=== PATIENT | female | born 1995 | race Caucasian/White ===

== ENCOUNTER 2018-01-09 01:30 | Inpatient (IN) | payer OTHER ==
[~2018-01-09] VITALS: Ht 157.5 cm; Wt 66.0 kg
[2018-01-09 02:12] LABS: MICROSCOPIC INDICATED
[2018-01-09] MEDS ORDERED: BETAMETHASONE 6 MG/ML, 5ML IM SCH ×2 (02:30→03:00)
[2018-01-09] MEDS ORDERED: BETAMETHASONE 6 MG/ML, 5ML IM ONE (02:32)
[2018-01-09] MEDS: LACTATED RINGERS 1,000 ML IV SCH ×3 (02:40→19:00)
[2018-01-09 02:48] LABS: BASOPHILS # (AUTO) 0.04 x10^3/uL (0-0.1); BASOPHILS % (AUTO) 0 % (0-1); EOSINOPHILS # (AUTO) 0.22 x10^3/uL (0-0.4); EOSINOPHILS % (AUTO) 1 % (1-7); LYMPHOCYTES # (AUTO) 3.28 x10^3/uL (1-3.4); LYMPHOCYTES % (AUTO) 19 % (22-44); MD NO; MEAN CORPUSCULAR HEMOGLOBIN 26.7 pg (27.0-34.8); MEAN CORPUSCULAR HGB CONC 33.6 g/dL (32.4-35.8); MEAN CORPUSCULAR VOLUME 79.4 fL (80-100); MEAN PLATELET VOLUME 9.2 fL (7.4-10.4); MONOCYTES # (AUTO) 1.28 x10^3/uL (0.2-0.8); MONOCYTES % (AUTO) 8 % (2-9); NEUTROPHILS # (AUTO) 12.25 x10^3/uL (1.8-6.8); NEUTROPHILS % (AUTO) 72 % (42-75); PLATELET COUNT 275 x10^3/uL (130-400); RED BLOOD COUNT 4.09 x10^6/uL (3.82-5.3); RED CELL DISTRIBUTION WIDTH 14.1 % (9.6-15.2)
[2018-01-09] MEDS ORDERED: D5%-LACTATED RINGERS 1,000 ML IV SCH (03:41)
[2018-01-09] MEDS ORDERED: LACTATED RINGERS 1,000 ML IV SCH (03:41)
[2018-01-09] MEDS ORDERED: OXYTOCIN 30U/ 0.9% NaCL 500ML 500 ML IV ONE (03:41)
[2018-01-09] MEDS ORDERED: FENTANYL PF 100 MCG/2ML ONE ×2 (03:45→04:45)
[2018-01-09] MEDS ORDERED: NEWBORN KIT ONE (03:45)
[2018-01-09] MEDS ORDERED: LIDOCAINE/PF 1%, 30ML ONE (03:45)
[2018-01-09] MEDS ORDERED: OXYTOCIN 30U/ 0.9% NaCL 500ML 500 ML ONE (03:45)
[2018-01-09] MEDS: FENTANYL PF 100 MCG/2ML IVPush PRN ×2 (03:52→04:47)
[2018-01-09] MEDS ORDERED: CALCIUM CARBONATE 500 MG TAB.CHEW PO PRN (04:00)
[2018-01-09] MEDS ORDERED: FENTANYL PF 100 MCG/2ML IV PRN (04:00)
[2018-01-09] MEDS ORDERED: ONDANSETRON 2MG/ML, 2ML IVPush PRN (04:00)
[2018-01-09] MEDS ORDERED: TERBUTALINE 1 MG/ML, 1ML IVPush PRN (04:00)
[2018-01-09] MEDS ORDERED: PENICILLIN GK 5,000,000 UNITS in SODIUM CHLORIDE 0.9% 100 ML IVPB ONE (04:00)
[2018-01-09] MEDS: OXYTOCIN 30U/ 0.9% NaCL 500ML 500 ML IV SCH ×2 (06:13→16:13)
[2018-01-09] MEDS ORDERED: OXYcodone/APAP 5/325MG TABLET PO PRN (06:30)
[2018-01-09] MEDS ORDERED: METHYLERGONOVINE 0.2 MG/ML IM PRN ×2 (06:30→08:30)
[2018-01-09] MEDS ORDERED: ACETAMINOPHEN 325 MG TABLET PO PRN (06:30)
[2018-01-09] MEDS ORDERED: RHOGAM FROM BLOOD BANK 1 NOTE EA IM/IV ONE (06:30)
[2018-01-09] MEDS ORDERED: CARBOPROST TROMETHAMINE 250 MCG/ML, 1ML IM PRN (06:30)
[2018-01-09] MEDS ORDERED: DIPH,PERTUSS(ACELL),TET VAC/PF NC IM-VACC PRN (06:30)
[2018-01-09] MEDS ORDERED: MEASLES,MUMPS&RUBELLA VACC/PF 0.5 ML SQ PRN (06:30)
[2018-01-09] MEDS ORDERED: MISOPROSTOL 200 MCG TABLET PR PRN (06:30)
[2018-01-09] MEDS ORDERED: IBUPROFEN 600 MG TABLET ONE (06:34)
[2018-01-09] MEDS: IBUPROFEN 600 MG TABLET PO PRN ×2 (06:37→22:18)
[2018-01-09 07:55] VITALS: BP 127/75
[2018-01-09] MEDS ORDERED: PENICILLIN GK 2,500,000 UNITS in DEXTROSE 5% 100 ML IVPB SCH (08:00)
[2018-01-09] MEDS: PRENATAL VIT/IRON/FA 1 EACH TABLET PO SCH (09:00)
[2018-01-09 11:45] VITALS: BP 136/83
[2018-01-09 13:43] LABS: MEAN CORPUSCULAR HEMOGLOBIN 26.7 pg (27.0-34.8); MEAN CORPUSCULAR HGB CONC 33.5 g/dL (32.4-35.8); MEAN CORPUSCULAR VOLUME 79.8 fL (80-100); MEAN PLATELET VOLUME 9.5 fL (7.4-10.4); PLATELET COUNT 297 x10^3/uL (130-400); RED CELL DISTRIBUTION WIDTH 13.9 % (9.6-15.2)
[2018-01-09 14:36] LABS: BASOPHILS # (AUTO) 0.01 x10^3/uL (0-0.1); BASOPHILS % (AUTO) 0 % (0-1); EOSINOPHILS % (AUTO) 0 % (1-7); LYMPHOCYTES # (AUTO) 1.56 x10^3/uL (1-3.4); LYMPHOCYTES % (AUTO) 6 % (22-44); MD MORPH REVIEW ONLY; MONOCYTES % (AUTO) 3 % (2-9); NEUTROPHILS # (AUTO) 24.47 x10^3/uL (1.8-6.8); NEUTROPHILS % (AUTO) 91 % (42-75)
[2018-01-09 14:38] LABS: HYPOCHROMIA 1+; MICROCYTOSIS 1+; POLYCHROMASIA 1+
[2018-01-09 14:46] LABS: <PLATELET ESTIMATE> ADEQUATE; <PLT MORPHOLOGY> NORMAL PLT MORPH
[2018-01-09 16:56] VITALS: BP 122/72
[2018-01-09 20:20] VITALS: BP 122/78
[2018-01-09] MEDS: DOCUSATE 100 MG CAPSULE PO PRN (22:19)
[2018-01-09 23:00] VITALS: BP 122/78
[2018-01-10 00:05] VITALS: BP 117/70
[2018-01-10] MEDS: OXYTOCIN 30U/ 0.9% NaCL 500ML 500 ML IV SCH ×3 (02:13→22:13)
[2018-01-10] MEDS: LACTATED RINGERS 1,000 ML IV SCH ×3 (03:00→12:25)
[2018-01-10 04:55] VITALS: BP 127/79
[2018-01-10] MEDS: IBUPROFEN 600 MG TABLET PO PRN (05:40)
[2018-01-10 07:30] VITALS: BP 118/68
[2018-01-10] MEDS: DOCUSATE 100 MG CAPSULE PO PRN ×2 (09:53→19:36)
[2018-01-10] MEDS: PRENATAL VIT/IRON/FA 1 EACH TABLET PO SCH (09:53)
[2018-01-10 19:00] VITALS: BP 118/68
[2018-01-11] MEDS: LACTATED RINGERS 1,000 ML IV SCH ×2 (03:00→11:00)
[2018-01-11] MEDS: IBUPROFEN 600 MG TABLET PO PRN (03:16)
[2018-01-11] MEDS: OXYTOCIN 30U/ 0.9% NaCL 500ML 500 ML IV SCH (08:13)
[2018-01-11 08:40] VITALS: BP 111/73
[2018-01-11] MEDS: DOCUSATE 100 MG CAPSULE PO PRN (08:42)
[2018-01-11] MEDS: PRENATAL VIT/IRON/FA 1 EACH TABLET PO SCH (08:42)
== END 2018-01-11 17:17 | disposition home or self-care (01) | DRG 775 ==
LOC: LDOP 01:30 → OBSVTOIN 02:20 → LDIP 02:20 → 2NW 07:50
PROVIDERS: ADMIT Obstetrics & Gynecology Maternal & Fetal Medicine; ATTEND Obstetrics & Gynecology Maternal & Fetal Medicine
PROC: 10E0XZZ Delivery of Products of Conception, External Approach (ICD-10-PCS; principal; 2018-01-09)
PROC: 0UQMXZZ Repair Vulva, External Approach (ICD-10-PCS; 2018-01-09)
DX: O60.14X0 Preterm labor third trimester with preterm delivery third trimester, not applicable or unspecified (principal); Z37.0 Single live birth; O71.82 Other specified trauma to perineum and vulva; Z3A.35 35 weeks gestation of pregnancy; Z23 Encounter for immunization
CPT/HCPCS: 10060; 36415; 81001; 82803; 85025; 86850; 86900; 87081; 87086; 90715; 99285; J0702; J2540; J3010; J7120